=== PATIENT | female | born 1945 | race Caucasian/White ===

== ENCOUNTER → 2019-07-14 | Outpatient (CLI) | payer MEDICARE ==
--- NOTE | 2019-07-24 10:34 | RAD ---
DATE: 07/24/2019. EXAM: MAMMO SHARDA SCREENING BILATERAL HISTORY: Routine screening. COMPARISON: None This study was interpreted with the benefit of Computerized Aided Detection (CAD). FINDINGS: Breast Density: SCATTERED The breast parenchyma shows scattered fibroglandular densities. Breast parenchyma level B. Oval-shaped mass is seen at the o'clock position in the left breast measuring 7 mm in largest dimension approximately 8 cm from the nipple on cc view. Benign-appearing bilateral calcifications. IMPRESSION: Left breast mass as described above likely small cyst. BI-RADS CATEGORY: 0 INCOMPLETE: NEED ADDITIONAL IMAGING EVAULATION AND/OR PRIOR MAMMOGRAMS FOR COMPARISON RECOMMENDED FOLLOW-UP: ADD ADDITIONAL IMAGING. Ultrasound of the left lateral breast at 3:00 position recommended. PQRS compliance statement: Patient information was entered into a reminder system with a target due date for the next mammogram. Mammography is a sensitive method for finding small breast cancers, but it does not detect them all and is not a substitute for careful clinical examination. A negative mammogram does not negate a clinically suspicious finding and should not result in delay in biopsying a clinically suspicious abnormality. "Our facility is accredited by the [employer] Mammography Program."
== END | disposition home or self-care (01) ==
LOC: MAMMO 09:11
PROVIDERS: ATTEND Family Medicine
DX: Z12.31 Encounter for screening mammogram for malignant neoplasm of breast (principal); N63.20 Unspecified lump in the left breast, unspecified quadrant
CPT/HCPCS: 77063; 77067

== ENCOUNTER → 2019-08-07 | Outpatient (CLI) | payer MEDICARE ==
--- NOTE | 2019-08-07 14:36 | RAD ---
INDICATION: 74 year-old female presents for further evaluation of findings seen on prior mammogram TECHNIQUE: Targeted high resolution sonography of the region of clinical concern was performed. COMPARISON: None FINDINGS: ULTRASOUND FINDINGS: Targeted ultrasound of the left breast 2:30 position, 8 cm from the nipple: A hypoechoic mass is seen within the left breast with slightly irregular margins. IMPRESSION: Suspicious finding. RECOMMENDATION: Recommend ultrasound-guided biopsy of the left breast. BI-RADS 4: Suspicious Electronically signed by: Vick Coburn MD (08/07/2019 2:33 PM) [facility]
== END | disposition home or self-care (01) ==
LOC: US 12:43
PROVIDERS: ATTEND Family Medicine
DX: N63.21 Unspecified lump in the left breast, upper outer quadrant (principal)
CPT/HCPCS: 76641